=== PATIENT | male | born 1960 | race Caucasian/White ===

== ENCOUNTER 2020-04-23 19:26 | Emergency (ER) | payer BC, OTHER ==
--- OUTSIDE RECORDS SUMMARY | 2020-04-23 19:29 | XMS REPORT | Continuity of Care Document ---
:1960 Author Organization [facility] t Address [address] [place] [address] Care Team Providers Name Role Phone Yesenia Mckenzie Primary Care Physician Stacia Gutierrez MD Attending Clinician YANCI GUTIERREZ Attending Clinician Unavailable YANCI GUTIERREZ Admitting Clinician Unavailable Problems Condition Condition Condition Status Onset Resolution Last Treating Co mments Source Name Details Category Date Date Treatment Clinician Date Malignant Malignant Disease Active 2017-11 [facility] neoplasm neoplasm 11-18 [facility]: [facility] Allergies, Adverse Reactions, Alerts This patient has no known allergies or adverse reactions. Social History Social Habit Start Date Stop Date Quantity Comments Source Sex Assigned At [facility] Smoking Status Start Date Stop Date Source Never smoker [facility] Medications This patient has no known medications. Procedures This patient has no known procedures. Encounters Start End Encounter Admission Attending Care Care Encounter Source Date/Time Date/Time Type Type Clinicians Facility Department ID 2019-09-08 2019-09-08 Office Link, [facility] [id number] 14:12:59 17:39:07 Visit Antolin Dontao AMBULATOR [id number] Y [id number] Results Test Description Test Time Test Comments Results Result Kristin donato Comments TISSUE EXAM 2018-09-30 Surgical Pathology 14:57:00 Report Case: [id number] Authorizing Provider: Antolin Gutierrez MD Collected: 09/18/2018 1106 Ordering Location: [facility] Received: 09/18/2018 1134 SERVICES Pathologist: Zbigniew Brush MD Specimen: Prostate, Prostate with periprostatic fat PROSTATE, ROBOT ASSISTED LAPAROSCOPIC RADICAL PROSTATECTOMY: - ADENOCARCINOMA, MILENA 3+3 = 6, CONFINED TO THE PROSTATE, SURGICAL MARGINS NEGATIVESEMINAL VESICLES, ROBOT ASSISTED LAPAROSCOPIC RADICAL PROSTATECTOMY: - NO PATHOLOGIC DIAGNOSISSOFT TISSUE, "PELVIC LYMPH NODE", DISSECTION: - NO TUMOR PRESENT - NO LYMPH NODE PRESENT Signing Pathologist Direct Phone Line: [phone] ally signed by Zbigniew Brush MD on 09/30/2018 at 2:57 PMPROSTATE GLAND: Radical Prostatectomy (Prostate Res - All Specimens)SPECIMEN Procedure: Radical prostatectomy Prostate Size: Prostate Weight (g): 20.5 g Prostate Greatest Dimension in Centimeters (cm): 3.4 Centimeters (cm) Additional Dimension in Centimeters (cm): 2.8 Centimeters (cm) Additional Dimension in Centimeters (cm): 2.5 Centimeters (cm)TUMOR Histologic Type: Acinar adenocarcinoma Histologic Grade: [place] Pattern: Percentage of Pattern 4: 0 % Percentage of Pattern 5: 0 % Primary [place] Pattern: Pattern 3 Secondary Milena Pattern: Pattern 3 Tertiary [place] Pattern: Not applicable Total Milena Score: 6 Grade Group: 1 Intraductal Carcinoma (IDC): Not identified Tumor Extent: Tumor Quantitation: Estimated percentage of prostate involved by tumor: 5 % Extraprostatic Extension (EPE): Not identified Urinary Bladder Neck Invasion: Not identified Seminal Vesicle Invasion: Not identified Accessory Findings: Treatment Effect: No known presurgical therapy Lymphovascular Invasion: Not Identified Perineural Invasion: Present MARGINS Margins: Uninvolved by invasive carcinoma : Benign prostate glands present at surgical margin LYMPH NODES Regional Lymph Nodes: No lymph nodes submitted or found PATHOLOGIC STAGE CLASSIFICATION (pTNM, AJCC 8th Edition) TNM Descriptors: Not applicable Primary Tumor (pT): pT2 Regional Lymph Nodes (pN): pNX Distant Metastasis (pM): Not applicable - pM cannot be determined from the submitted specimen(s) ADDITIONAL FINDINGS Additional Pathologic Findings: High-grade prostatic intraepithelial neoplasia (PIN) 19079, [id number] ss radical prostatectomy specimen in formalin with the patient's name, Jaja Lee Jr., is a prostate with bilateral seminal vesicles and vas deferentia. The prostate weighs 20.5 gm and measures 2.8 cm apex to base, 3.4 cm transversely and 2.5 cm anterior to posterior. The right and left seminal vesicles measure 3.0 x 1.5 x 0.5 cm and 2.0 x 1.5 x 0.5 cm respectively. The right and left vas deferentia measure 5.0 cm and 4.2 cm in length respectively and 0.5 cm in diameter. The capsular surface of the prostate is purple-bowles to red, dusky and focally ragged. Ink code: right black, left blue. The prostate is serially sectioned from apex to base in entirety. The total number of slices including seminal vesicles and vas deferentia are 9. The sectioning of the prostate reveals pink-bowles to collins-white, homogeneous, focally nodular prostatic parenchyma throughout. No discrete masses are identified. The sectioning of the seminal vesicles reveals a pink-bowles unremarkable cut surface. Section code: apical margin are submitted in cassette A1, the bladder neck margins are submitted in cassette A2. The prostate slices are submitted in cassettes A3 to A7. The right and left seminal vesicles at the base of the prostate are submitted in cassette A8, the seminal vesicle tips along with vas deferentia are submitted in cassette A9. Also received is one piece of bowles-yellow fibrofatty tissue labeled as "pelvic lymph node" measuring 2.0 x 1.5 x 0.5 cm and weighing 2.4 gm. It is submitted in cassette A10. [facility]/plPerformed. BASIC METABOLIC PANEL 2018-09-19 08:40:00 Test Item Value Reference Range Interpretation Comme nts SODIUM (BEAKER) (test code 138 meq/L 136-145 = 381) POTASSIUM (BEAKER) (test 4.2 meq/L 3.5-5.1 code = 379) CHLORIDE (BEAKER) (test 107 meq/L 98-107 code = 382) CO2 (BEAKER) (test code = 23 meq/L 22-29 355) BLOOD UREA NITROGEN 10 mg/dL 7-21 (BEAKER) (test code = 354) CREATININE (BEAKER) (test 0.85 mg/dL 0.57-1.25 code = 358) GLUCOSE RANDOM (BEAKER) 120 mg/dL 70-105 H (test code = 652) CALCIUM (BEAKER) (test code 8.9 mg/dL 8.4-10.2 = 697) EGFR (BEAKER) (test code = 92 mL/min/1.73 sq m ESTIMATED GFR IS NOT 1092) ACCURATE CRE ATININE CLEARANCE IN IN EDICTING GLOMERULAR FILT RATION RATE. ESTIMATED GFR IS NOT APPLICABLE FOR DIALYSIS PATIENTS. CBC W/PLT COUNT & AUTO [id number] 05:31:00 Test Item Value Reference Range Interpretation Comments WHITE BLOOD CELL COUNT (BEAKER) 8.8 K/ L 3.5-10.5 (test code = 775) RED BLOOD CELL COUNT (BEAKER) 4.15 M/ L 4.63-6.08 L (test code = 761) HEMOGLOBIN (BEAKER) (test code = 12.8 GM/DL 13.7-17.5 L 410) HEMATOCRIT (BEAKER) (test code = 38.6 % 40.1-51.0 L 411) MEAN CORPUSCULAR VOLUME (BEAKER) 93.0 fL 79.0-92.2 H (test code = 753) MEAN CORPUSCULAR HEMOGLOBIN 30.8 pg 25.7-32.2 (BEAKER) (test code = 751) MEAN CORPUSCULAR HEMOGLOBIN CONC 33.2 GM/DL 32.3-36.5 (BEAKER) (test code = 752) RED CELL DISTRIBUTION WIDTH 12.8 % 11.6-14.4 (BEAKER) (test code = 412) PLATELET COUNT (BEAKER) (test 229 K/CU MM 150-450 code = 756) MEAN PLATELET VOLUME (BEAKER) 10.8 fL 9.4-12.4 (test code = 754) NUCLEATED RED BLOOD CELLS 0 /100 WBC 0-0 (BEAKER) (test code = 413) NEUTROPHILS RELATIVE PERCENT 78 % (BEAKER) (test code = 429) LYMPHOCYTES RELATIVE PERCENT 10 % (BEAKER) (test code = 430) MONOCYTES RELATIVE PERCENT 11 % (BEAKER) (test code = 431) EOSINOPHILS RELATIVE PERCENT 0 % (BEAKER) (test code = 432) BASOPHILS RELATIVE PERCENT 0 % (BEAKER) (test code = 437) NEUTROPHILS ABSOLUTE COUNT 6.87 K/ L 1.78-5.38 H (BEAKER) (test code = 670) LYMPHOCYTES ABSOLUTE COUNT 0.92 K/ L 1.32-3.57 L (BEAKER) (test code = 414) MONOCYTES ABSOLUTE COUNT (BEAKER) 0.97 K/ L 0.30-0.82 H (test code = 415) EOSINOPHILS ABSOLUTE COUNT 0.00 K/ L 0.04-0.54 L (BEAKER) (test code = 416) BASOPHILS ABSOLUTE COUNT (BEAKER) 0.01 K/ L 0.01-0.08 (test code = 417) IMMATURE GRANULOCYTES-RELATIVE 1 % 0-1 PERCENT (BEAKER) (test code = 2801) BASIC METABOLIC [id number] 12:30:00 Test Item Value Reference Range Interpretation Comments SODIUM (BEAKER) 139 meq/L 136-145 (test code = 381) POTASSIUM (BEAKER) 4.3 meq/L 3.5-5.1 (test code = 379) CHLORIDE (BEAKER) 107 meq/L 98-107 (test code = 382) CO2 (BEAKER) (test 24 meq/L 22-29 code = 355) BLOOD UREA NITROGEN 14 mg/dL 7-21 (BEAKER) (test code = 354) CREATININE (BEAKER) 1.03 mg/dL 0.57-1.25 (test code = 358) GLUCOSE RANDOM 142 mg/dL 70-105 H (BEAKER) (test code = 652) CALCIUM (BEAKER) 9.1 mg/dL 8.4-10.2 (test code = 697) EGFR (BEAKER) (test 74 mL/min/1.73 ESTIMA MELISSA GFR IS code = 1092) sq m NOT ACCURATE CREATININE CLEARANCE IN PREDICTING GLOMERULAR FILTRATION RATE . ESTIMATED GFR I S NOT APPLICABLE FOR DIALYSIS PATIEN TS. HEMOGLOBIN AND [id number] 12:20:00 Test Item Value Reference Range Interpretation Comments HEMOGLOBIN (BEAKER) (test code = 14.1 GM/DL 13.7-17.5 410) HEMATOCRIT (BEAKER) (test code = 42.9 % 40.1-51.0 411)
--- OUTSIDE RECORDS SUMMARY | 2020-04-23 19:29 | XMS REPORT | Clinical Summary ---
:1960 Author Organization [facility] Address [address] [place] [address] Care Team Providers Name Role Phone Yesenia Mckenzie Primary Care Provider Allergies No Known Allergies Medications No known medications Active Problems Problem Noted Date Malignant neoplasm of prostate 09/18/2018 Social History Tobacco Use Types Packs/Day Years Used Date Never Smoker Smokeless Tobacco: Never Used Alcohol Use Drinks/Week oz/Week Comments Yes 6 Cans of beer 3.6 Sex Assigned at Date Recorded Not on file Job Start Date Occupation Industry Not on file Not on file Not on file Travel History Travel Start Travel End No recent travel history available. Last Filed Vital Signs Not on file Plan of Treatment Not on file Results Not on fileafter 04/23/2019 Insurance Payer Benefit Plan / Group Subscriber ID Type Phone A ddress [employer] - MGD CARE AET[employer] SELECT US ACCESS xxxxxxxxxx HMO/POS Advance Directives For more information, please contact:[facility] [place], [place] [phone] Code Status Date Activated Date Inactivated Comments Full Code 09/18/2018 3:05 PM This code status was determined by: Patient
--- NOTE | 2020-04-23 20:23 | RAD REPORT ---
EXAM DESCRIPTION: RAD - Wrist Left 2 View - 04/23/2020 8:10 pm CLINICAL HISTORY: PAIN, fall, wrist pain COMPARISON: No comparisons TECHNIQUE: PA and lateral views of the wrist were obtained. . FINDINGS: Oblique fracture is present through the radial styloid with very minimal 1 millimeter dist raction. There additional sagittal oriented fracture planes extending from the articular surface of t he radius to the metaphyseal diaphyseal junction. These fracture lines have no distraction or angulat ion component. No dislocation or periosteal reaction. No angulation deformity. Distal ulna is intact. No carpal bone abnormality seen. Soft tissue swelling is present without forei gn body. IMPRESSION: Comminuted fracture of the left distal radius as detailed.
--- NOTE | 2020-04-23 20:24 | RAD REPORT ---
EXAM DESCRIPTION: RAD - Wrist Right 2 View - 04/23/2020 8:10 pm CLINICAL HISTORY: Fall, wrist pain COMPARISON: None. FINDINGS: PA and lateral views the right wrist were obtained. No fracture is identified.There is no dislocation or periosteal reaction noted. No foreign body or ot her soft tissue abnormality. IMPRESSION: Buckle fracture distal right radius.
--- NOTE | 2020-04-23 20:39 | RAD REPORT ---
EXAM DESCRIPTION: CT - CTHCSPWOC - 04/23/2020 8:22 pm CLINICAL HISTORY: fall, head and neck injury, headache, neck pain COMPARISON: No comparisons TECHNIQUE: Axial 5 mm thick images of the head were obtained. Axial 2 mm thick images of the cervic al spine were obtained with sagittal and coronal reconstruction images generated and reviewed. All CT scans are performed using dose optimization technique as appropriate and may include automated exposure control or mA/KV adjustment according to patient size. FINDINGS: No intracranial hemorrhage, mass, edema or acute intracranial finding. No suspicion for ac augustine infarction. No extra-axial fluid collections. Mastoid air cells and paranasal sinuses are clear. No globe or orbit abnormality seen. No significant atrophy or chronic ischemic change. Ventricles are normal. Cervical body alignment is normal. Slight wedging is seen in the C5 body. This is often encounter de and typically degenerative in origin. No acute fracture line identified. C3-4 disc space is borderlin e for being narrowed. Disc space narrowing is present involving the C4-5 through C7-T1 levels. Change s are most pronounced at C5-6. No acute fractures seen. No acute or pathologic bone process identifia ble. Borderline right foraminal encroachment C3-4 from uncovertebral joint hypertrophy. Mild right fo raminal encroachment at C4-5. Posterior endplate spurring partially encroaches into the central canal at C4-5 facet joint degenerative changes minimal. Central canal detail is inherently limited. No paraspinal mass or hematoma. IMPRESSION: No hemorrhage, edema or acute CT Head finding. Prominent for age cervical spine degenerative change. No acute finding.
[2020-04-23] MEDS ORDERED: KETOROLAC 30 MG/ML INJ ONE (20:40)
[2020-04-23 20:52] LABS: Absolute Lymphocytes (CBC) 1.1 K/uL (0.7-4.9); Basophils % 0.8 % (0-1.3); Hematocrit 40.9 % (39.6-49.0); Lymphocytes % 12.8 % (15.3-44.8); MPV 9.1 fL (7.6-11.3); RBC Red Blood Cell Count 4.62 M/uL (4.33-5.43)
[2020-04-23 21:10] LABS: Potassium 3.3 mmol/L (3.5-5.1)
--- NOTE | 2020-04-23 21:50 | EDPHYS ---
Physician Documentation [facility] Name: Tim Sahu Jr Age: 60 yrs Sex: Male : 1960 Arrival Date: 04/23/2020 Time: 19:30 Bed 15 Private MD: ED Physician Karel Elise HPI: 04/23 21:41 This 60 yrs old Male presents to ER via Ambulatory with complaints of Arm tw4 Injury. 21:41 The patient or guardian complains of decreased range of motion. The complaints affect tw4 the right wrist, left wrist. Context: The problem was sustained at home, resulted from. Treatment prior to arrival includes: no previous treatment. Modifying factors: The symptoms are alleviated by nothing. the symptoms are aggravated by nothing. The patient has not experienced similar symptoms in the past. Historical: - Allergies: 19:47 No Known Allergies; aj1 - Home Meds: 19:47 Cialis oral oral [Active]; aj1 - PMHx: 19:47 prostate cancer- currently in remission; aj1 - Immunization history:: Flu vaccine is not up to date. - Social history:: Smoking status: Patient/guardian denies using tobacco. ROS: 21:41 Constitutional: Negative for fever, chills, and weight loss, Eyes: Negative for injury, tw4 pain, redness, and discharge, Cardiovascular: Negative for chest pain, palpitations, and edema, Respiratory: Negative for shortness of breath, cough, wheezing, and pleuritic chest pain, Abdomen/GI: Negative for abdominal pain, nausea, vomiting, diarrhea, and constipation, Skin: Negative for injury, rash, and discoloration, Neuro: Negative for headache, weakness, numbness, tingling, and seizure. 21:41 MS/extremity: Positive for injury or acute deformity, decreased range of motion. Exam: 21:41 Constitutional: This is a well developed, well nourished patient who is awake, alert, tw4 and in no acute distress. Head/Face: Normocephalic, atraumatic. Chest/axilla: Normal chest wall appearance and motion. Nontender with no deformity. No lesions are appreciated. Cardiovascular: Regular rate and rhythm with a normal S1 and S2. No gallops, murmurs, or rubs. Normal PMI, no JVD. No pulse deficits. Respiratory: Lungs have equal breath sounds bilaterally, clear to auscultation and percussion. No rales, rhonchi or wheezes noted. No increased work of breathing, no retractions or nasal flaring. Abdomen/GI: Soft, non-tender, with normal bowel sounds. No distension or tympany. No guarding or rebound. No evidence of tenderness throughout. Neuro: Awake and alert, GCS 15, oriented to person, place, time, and situation. Cranial nerves II-XII grossly intact. Motor strength 5/5 in all extremities. Sensory grossly intact. Cerebellar exam normal. Normal gait. 21:41 Musculoskeletal/extremity: Extremities: noted in the left wrist: decreased ROM, deformity, swelling, tenderness, noted in the right wrist: swelling, tenderness, ROM: limited active range of motion due to pain, limited passive range of motion due to pain. Vital Signs: 19:44 BP 140 / 74; Pulse 61; Resp 18; Temp 97.7; Pulse Ox 99% on R/A; Weight 86.18 kg (R); aj1 Height 5 ft. 9 in. (175.26 cm) (R); Pain 8/10; 22:07 BP 130 / 60; Pulse 62; Resp 18; Pulse Ox 98% on R/A; aj1 19:44 Body Mass Index 28.06 (86.18 kg, 175.26 cm) aj1 Toya Coma Score: 19:48 Eye Response: spontaneous(4). Verbal Response: oriented(5). Motor Response: obeys ls4 commands(6). Total: 15. Trauma Score (Adult): 19:48 Eye Response: spontaneous(1); Verbal Response: oriented(1); Motor Response: obeys ls4 commands(2); Systolic BP: > 89 mm Hg(4); Respiratory Rate: 10 to 29 per min(4); [place] Score: 15; Trauma Score: 12 MDM: 19:52 Patient medically screened. tw4 21:41 Differential diagnosis: dislocation, open fracture, closed fracture. Data reviewed: tw4 vital signs, nurses notes. Data interpreted: Pulse oximetry: Interpretation: normal. Counseling: I had a detailed discussion with the patient and/or guardian regarding: the historical points, exam findings, and any diagnostic results supporting the discharge/admit diagnosis. Special discussion: I discussed with the patient/guardian in detail that at this point there is no indication for admission to the hospital. It is understood, however, that if the symptoms persist or worsen the patient needs to return immediately for re-evaluation. 04/23 19:53 Order name: Basic Metabolic Panel; Complete Time: 22:08 04/23 22:08 Interpretation: Normal except: GLUC 114; K 3.3; BUN 20; CRE 1.45; GFR 49. 04/23 19:53 Order name: CBC with Diff; Complete Time: 22:08 04/23 22:09 Interpretation: Normal except: LYM% 12.8; BLOSSOM% 79.1. 04/23 19:53 Order name: CT Head C Spine; Complete Time: 22:08 04/23 19:53 Order name: Type And Screen; Complete Time: 22:08 04/23 19:53 Order name: Wrist Right 2 View XRAY; Complete Time: 20:46 04/23 19:53 Order name: Wrist Left (2 View) XRAY; Complete Time: 20:46 04/23 19:53 Order name: Labs collected and sent; Complete Time: 20:36 04/23 19:53 Order name: C-Collar; Complete Time: 20:10 lp1 Administered Medications: 20:49 Drug: TORadol 30 mg Route: IVP; Site: right antecubital; ls4 21:22 Follow up: Response: No adverse reaction; Pain is decreased ls4 Disposition: 04/23/20 21:50 Discharged to Home. Impression: Colles' fracture of left radius, Colles' fracture of right radius, Contusion of unspecified part of neck. - Condition is Stable. - Discharge Instructions: Colles Fracture, Wrist Fracture Treated With Immobilization. - Prescriptions for Ibuprofen 800 mg Oral Tablet - take 1 tablet by ORAL route every 8 hours As needed take with food; 30 tablet. Tylenol- Codeine #3 300-30 mg Oral Tablet - take 2 tablet by ORAL route every 6 hours As needed; 6 tablet. - Medication Reconciliation Form, Thank You Letter, Antibiotic Education, Prescription Opioid Use form. - Follow up: Private Physician; When: Upon discharge from the Emergency Department; Reason: Recheck today's complaints, Continuance of care, Re-evaluation by your physician. - Problem is new. - Symptoms have improved. Signatures: Dispatcher [employer] EDMS Yudi Morris RN RN aj1 Samanta Goins RN RN lp1 Karel Elise MD MD tw4 Lorena Diaz RN RN ls4 Corrections: (The following items were deleted from the chart) 21:51 21:50 04/23/2020 21:50 Discharged to Home. Impression: Colles' fracture of left radius. tw4 Condition is Stable. Forms are Medication Reconciliation Form, Thank You Letter, Antibiotic Education, Prescription Opioid Use. Follow up: Private Physician; When: Upon discharge from the Emergency Department; Reason: Recheck today's complaints, Continuance of care, Re-evaluation by your physician. Problem is new. Symptoms have improved. tw4 22:08 21:51 04/23/2020 21:50 Discharged to Home. Impression: Colles' fracture of left radius; aj1 Colles' fracture of right radius; Contusion of unspecified part of neck. Condition is Stable. Forms are Medication Reconciliation Form, Thank You Letter, Antibiotic Education, Prescription Opioid Use. Follow up: Private Physician; When: Upon discharge from the Emergency Department; Reason: Recheck today's complaints, Continuance of care, Re-evaluation by your physician. Problem is new. Symptoms have improved. tw4
--- NOTE | 2020-04-23 21:50 | ER ---
Nurse's Notes [facility] Name: Tim Sahu Jr Age: 60 yrs Sex: Male : 1960 Arrival Date: 04/23/2020 Time: 19:30 Bed 15 Private MD: Diagnosis: Colles' fracture of left radius;Colles' fracture of right radius;Contusion of unspecified part of neck Presentation: 04/23 19:44 Chief complaint: Patient states: I was up on a ladder and he fell backwards off the aj1 ladder, states that he landed on his arms, then back and head. Reports pain to left wrist, right wrist, and neck. Denies LOC, denies vomiting. Coronavirus screen: Proceed with normal triage. Patient denies a cough. Patient denies shortness of breath or difficulty breathing. Patient denies measured and/or subjective temperature greater than 100.4F prior to today's visit. Patient denies travel on a cruise ship or to a country the [facility] currently lists as an affected area. Patient denies contact with known and/or suspected case of COVID-19. Ebola Screen: Patient denies travel to an Ebola-affected area in the 21 days before illness onset. Initial Sepsis Screen: Does the patient meet any 2 criteria? No. Patient's initial sepsis screen is negative. Does the patient have a suspected source of infection? No. Patient's initial sepsis screen is negative. Risk Assessment: Do you want to hurt yourself or someone else? Patient reports no desire to harm self or others. Onset of symptoms was April 23, 2020 at 18:45. 19:44 Method Of Arrival: Ambulatory aj1 19:44 Acuity: OSMAN 4 aj1 20:17 Care prior to arrival: None. Mechanism of Injury: Fall from ladder approximately 7 ls4 feet. Trauma event details: Injury occurred in the [facility], Injury occurred: at home. Injury occurred: April 23, 2020 Injury occurred at: 17:00. Activity prior to arrival: None. Triage Assessment: 19:47 General: Appears in no apparent distress. uncomfortable, Behavior is calm, cooperative, aj1 appropriate for age. Pain: Complains of pain in right wrist, left wrist and neck. Neuro: Level of Consciousness is awake, alert, obeys commands. Musculoskeletal: Range of motion: limited in left wrist and right wrist. Injury Description: Patient reports he fell 7 feet off a ladder. Trauma Activation: Alert Physician: ED Physician; Name: ISAI; Notified At: 17:49; Arrived At: 17:50 Physician: General Surgeon; Name: NA; Notified At: 17:49; Arrived At: Specialty not needed Physician: Radiology; Name: JEANNETTE; Notified At: 17:49; Arrived At: 17:50 Physician: Respiratory; Name: NA; Notified At: 17:49; Arrived At: Specialty not needed Physician: Lab; Name: NA; Notified At: 17:49; Arrived At: Specialty not needed Historical: - Allergies: 19:47 No Known Allergies; aj1 - Home Meds: 19:47 Cialis oral oral [Active]; aj1 - PMHx: 19:47 prostate cancer- currently in remission; aj1 - Immunization history:: Flu vaccine is not up to date. - Social history:: Smoking status: Patient/guardian denies using tobacco. Screenin:16 Abuse screen: Denies threats or abuse. Denies injuries from another. Tuberculosis ls4 screening: No symptoms or risk factors identified. 20:21 Nutritional screening: No deficits noted. Fall Risk None identified. ls4 Primary Survey: 19:48 NO uncontrolled hemorrhage observed. A: The patient is alert. Airway: patent, Patient ls4 intubated prior to arrival No supplemental oxygen in use on arrival. Oral cavity: clear, Trachea midline. Breathing/Chest: Respiratory pattern: regular, Respiratory effort: spontaneous, unlabored, Breath sounds: clear, bilaterally. Chest inspection: symmetrical rise and fall of the chest. Circulation: Heart tones present. Pulses: palpable right radial artery, right posterior tibial artery, left radial artery and left posterior tibial artery. Skin color: pink, Skin temperature: warm, dry, Arterial Line:. Disability Alert. Exposure/Environment: All clothing and personal items were removed. Forensic evidence collection is not deemed to be indicated at this time. Items placed in patient belonging bag. A warming method has been applied: A warm blanket has been provided to the patient. Reassessment Breathing/Chest Respiratory pattern Regular Respiratory effort Spontaneous Unlabored Breath sounds Clear Chest inspection Symmetrical Circulation Heart rhythm Heart tones Present Pulses Palpable Color [place] Temperature Warm Dry Disability Alert. Secondary Survey: 19:48 HEENT: No deficits noted. Gastrointestinal: No deficits noted. : No deficits noted. ls4 Musculoskeletal: Circulation, motion, and sensation intact. Capillary refill < 3 seconds, Range of motion: limited in left wrist Swelling present in left wrist Denies numbness in, right hand, left hand, right foot, left foot, right arm, left arm, right leg and left leg. Injury Description: NO VISIBLE INJURY. Assessment: 20:11 General: Appears in no apparent distress. comfortable. General: Behavior is calm, ls4 cooperative. Pain: Complains of pain in left wrist Pain currently is 8 out of 10 on a pain scale. Neuro: Level of Consciousness is awake, alert, obeys commands, Oriented to person, place, time, situation. EENT: No deficits noted. No signs and/or symptoms were reported regarding the EENT system. Eyes Sclera/Cornea are clear in outer aspect of conjuctiva of right eye, inner aspect of conjuctiva of right eye, outer aspect of conjuctiva of left eye and inner aspect of conjunctiva of left eye Throat is clear Denies. Cardiovascular: Denies chest pain, diaphoresis, fatigue, lightheadedness, nausea, palpitations, shortness of breath, syncope, vomiting, Capillary refill < 3 seconds Patient's skin is warm and dry. Respiratory: Airway is patent Respiratory effort is even, unlabored, Respiratory pattern is regular. GI: Abdomen is non-distended, Bowel sounds present X 4 quads. Abd is soft and non tender X 4 quads. Reports. : No deficits noted. No signs and/or symptoms were reported regarding the genitourinary system. Derm: No deficits noted. No signs and/or symptoms reported regarding the dermatologic system. Musculoskeletal: Reports pain in neck Pain is 3 out of 10 on a pain scale. Injury Description: NO VISIBLE INJURY. Vital Signs: 19:44 BP 140 / 74; Pulse 61; Resp 18; Temp 97.7; Pulse Ox 99% on R/A; Weight 86.18 kg (R); aj1 Height 5 ft. 9 in. (175.26 cm) (R); Pain 8/10; 22:07 BP 130 / 60; Pulse 62; Resp 18; Pulse Ox 98% on R/A; aj1 19:44 Body Mass Index 28.06 (86.18 kg, 175.26 cm) aj1 [place] Coma Score: 19:48 Eye Response: spontaneous(4). Verbal Response: oriented(5). Motor Response: obeys ls4 commands(6). Total: 15. Trauma Score (Adult): 19:48 Eye Response: spontaneous(1); Verbal Response: oriented(1); Motor Response: obeys ls4 commands(2); Systolic BP: > 89 mm Hg(4); Respiratory Rate: 10 to 29 per min(4); [place] Score: 15; Trauma Score: 12 ED Course: 19:30 Patient arrived in ED. es 19:46 Triage completed. aj1 19:47 Arm band placed on Patient placed in an exam room. aj1 19:48 No provider procedures requiring assistance completed. Rigid cervical collar applied ls4 and checked by physician. 19:48 Patient maintains SpO2 saturation greater than 95% on room air. ls4 19:52 Karel Elise MD is Attending Physician. tw4 19:53 Lorena Diaz, RN is Primary Nurse. ls4 20:10 Wrist Right 2 View XRAY In Process Unspecified. EDMS 20:10 Wrist Left (2 View) XRAY In Process Unspecified. EDMS 20:16 Patient has correct armband on for positive identification. Bed in low position. Call ls4 light in reach. Side rails up X 1. Adult w/ patient. Patient maintains SpO2 saturation greater than 95% on room air. 20:21 Thermoregulation: PT REFUSED WARM BLANKET. ls4 20:23 CT Head C Spine In Process Unspecified. EDMS 20:44 Inserted saline lock: 20 gauge in right antecubital area, using aseptic technique. dh4 22:07 IV discontinued, intact, bleeding controlled, No redness/swelling at site. Pressure aj1 dressing applied. Administered Medications: 20:49 Drug: TORadol 30 mg Route: IVP; Site: right antecubital; ls4 21:22 Follow up: Response: No adverse reaction; Pain is decreased ls4 Outcome: 21:50 Discharge ordered by . tw4 22:07 Discharged to home ambulatory, with family. aj1 22:07 Condition: good 22:07 Discharge instructions given to patient, family, Instructed on discharge instructions, follow up and referral plans. no drinking with medication, no driving heavy equipment, medication usage, Splint care, circulation checks, R.I.C.E Demonstrated understanding of instructions, follow-up care, medications, splint care, R.I.C.E, circulation checks Prescriptions given X 2. 22:08 Patient left the ED. aj1 Signatures: Dispatcher [employer] Yudi Hernandez RN RN aj1 Melissa Humphrey Terrence, MD MD tw4 Lorena Diaz RN RN ls4 Jakub Givens 4
[2020-04-23 22:15] VITALS: TEMP 97.7
[2020-04-23 22:16] VITALS: BP 130/60; O2SAT 98
== END 2020-04-23 22:08 | disposition home or self-care (01) ==
LOC: ER 19:26
DX: S52.532A Colles' fracture of left radius, initial encounter for closed fracture (principal); S52.531A Colles' fracture of right radius, initial encounter for closed fracture; W11.XXXA Fall on and from ladder, initial encounter; Y93.9 Activity, unspecified; Y92.009 Unspecified place in unspecified non-institutional (private) residence as the place of occurrence of the external cause; Z85.46 Personal history of malignant neoplasm of prostate
CPT/HCPCS: 36415; 70450; 72125; 80048; 85025; 86850; 86900; 86901; 96374; 99284

== ENCOUNTER 2021-08-19 15:16 | Emergency (ER) | payer BC ==
[2021-08-19] MEDS ORDERED: HYDROCODONE/APAP 7.5/325 MG TAB ONE (16:12)
[2021-08-19] MEDS ORDERED: TETANUS & DIPHTHERIA TOX,ADULT 0.5 ML VIAL ONE (16:12)
--- NOTE | 2021-08-19 17:02 | RAD REPORT ---
EXAM DESCRIPTION: RAD - Tib Fib Left - 08/19/2021 4:18 pm CLINICAL HISTORY: Laceration, chainsaw injury COMPARISON: None. FINDINGS: No fracture is identified. There is very subtle irregularity of the outer cortex at the le mable of the laceration. No foreign body in the soft tissues. There is no dislocation or periosteal bisi ction noted. IMPRESSION: Suspected very small cortical defect superficial most aspect of the midshaft left tibia.
[2021-08-19] MEDS ORDERED: BUPIVACAINE 0.5% PF 10 ML VIAL ONE (17:35)
[2021-08-19] MEDS ORDERED: LIDOCAINE 1% W/EPI 1:100,000 MDV 20 ML VIAL ONE (17:36)
[2021-08-19] MEDS ORDERED: CEFAZOLIN SODIUM 1 GM/VIAL ONE (18:27)
[2021-08-19] MEDS ORDERED: WATER FOR INJ,STERILE 10 ML ONE (18:28)
--- NOTE | 2021-08-19 18:28 | EDPHYS ---
Physician Documentation [facility] Name: Tim Sahu Jr Age: 61 yrs Sex: Male : 1960 Arrival Date: 08/19/2021 Time: 15:17 Bed 8 Private MD: ED Physician Bassem Ceron HPI: 08/19 15:45 This 61 yrs old Male presents to ER via Wheelchair with complaints of cp Laceration To Leg. 15:45 The patient has a laceration occurred outdoors, and while using chainsaw The injury was cp accidental. The laceration(s) is(are) located on the left stewart. Onset: The symptoms/episode began/occurred just prior to arrival. Associated signs and symptoms: Pertinent negatives: heavy bleeding, loss of consciousness, numbness distal to injury. Patient reports he was using chainsaw when he accidently struck left lower leg causing laceration. Historical: - Allergies: 15:33 No Known Allergies; vg1 - Home Meds: 15:33 None [Active]; vg1 - PMHx: 15:33 prostate cancer- currently in remission; vg1 - Immunization history:: Adult Immunizations up to date, Client reports receiving the 2nd dose of the Covid vaccine. - Social history:: Smoking status: Patient denies any tobacco usage or history of. ROS: 15:50 Skin: Positive for laceration(s), of the anterior aspect left lower leg. cp 15:50 Constitutional: Negative for fever. cp 15:50 Neck: Negative for pain with movement, pain at rest, stiffness. 15:50 Cardiovascular: Negative for chest pain, palpitations. 15:50 Respiratory: Negative for cough, shortness of breath, wheezing. 15:50 Back: Negative for pain at rest, pain with movement. 15:50 Neuro: Negative for numbness, tingling, weakness. 15:50 All other systems are negative. Exam: 15:55 Constitutional: The patient appears in no acute distress, alert, awake, well developed, cp well nourished. 15:55 Head/Face: Normocephalic, atraumatic. cp 15:55 Cardiovascular: Rate: normal. 15:55 Respiratory: the patient does not display signs of respiratory distress, Respirations: normal, no use of accessory muscles, no retractions, labored breathing, is not present. 15:55 Abdomen/GI: Exam negative for discomfort, distension, guarding, Inspection: abdomen appears normal. 15:55 Back: pain, is absent, ROM is normal. 15:55 Musculoskeletal/extremity: Extremities: grossly normal except: noted in the left stewart: laceration, ROM: full active range of motion, in the left ankle, Perfusion: the extremity is normally perfused throughout, Sensation intact. 15:55 Skin: injury, laceration(s), the wound is approximately 7 cm(s), of the left stewart, that can be described as no foreign body, linear, with mild bleeding. Vital Signs: 15:32 BP 142 / 89; Pulse 68; Resp 18; Temp 98.4; Pulse Ox 100% ; Weight 90.72 kg; Height 5 vg1 ft. 9 in. (175.26 cm); Pain 4/10; 15:32 Body Mass Index 29.53 (90.72 kg, 175.26 cm) vg1 Laceration: 18:30 Wound Repair of 7cm ( 2.8in ) subcutaneous laceration to anterior aspect left lower cp leg. Linear shaped.. Distal neuro/vascular/tendon intact. Anesthesia: Wound infiltrated with 10 mls of Lido/Marcaine. Wound prep: Moderate cleansing by nurse, Wound irrigation by nurse. Skin closed with 9 1-0 Akash using staple gun. Dressed with Bacitracin, 4x4's, Kerlix. Patient tolerated well. MDM: 15:41 Patient medically screened. cp 16:00 Differential diagnosis: superficial laceration, tendon injury, open fracture. cp 17:19 Data reviewed: vital signs, nurses notes, radiologic studies, plain films. Physician cp consultation: Darrick Gloria MD was contacted at 17:19, regarding wound management. Discussed results of x-ray findings that showed concern for irregularity of the outer cortex at the level of the laceration. Requests wound cleaned, irrigated in the ER and closed. 17:28 Physician consultation: Hayden Gant MD was called at 17:30, regarding consult, cp patient's condition. 18:28 Counseling: I had a detailed discussion with the patient and/or guardian regarding: the cp historical points, exam findings, and any diagnostic results supporting the discharge/admit diagnosis, radiology results, the need for outpatient follow up, a family practitioner, a orthopedic surgeon, to return to the emergency department if symptoms worsen or persist or if there are any questions or concerns that arise at home. 18:28 Response to treatment: the patient's symptoms have markedly improved after treatment. cp Special discussion: I discussed in detail with the patient the higher chance of wound infection based on his presenting history. 08/19 15:42 Order name: XRAY Tib Fib LEFT cp 08/19 16:53 Order name: Dressing - Wound; Complete Time: 18:36 cp 08/19 16:53 Order name: Gloves, Sterile; Complete Time: 17:09 cp 08/19 16:53 Order name: Setup Suture Tray; Complete Time: 17:09 cp 08/19 18:27 Order name: Wound dressing; Complete Time: 18:36 cp 08/19 18:27 Order name: Crutches; Complete Time: 18:36 cp Administered Medications: 15:53 Drug: Tetanus-Diphtheria Toxoid Adult 0.5 ml {Driller'S Offsider: [employer]. Exp: ch5 01/25/2023. Lot #: [id number]. } Route: IM; Site: right deltoid; 18:36 Follow up: Response: No adverse reaction tw2 15:53 Drug: Hydrocodone-Acetaminophen (7.5 mg-325 mg) 1 tabs Route: PO; ch5 18:36 Follow up: Response: No adverse reaction; Pain is decreased; RASS: Alert and Calm (0) tw2 17:00 Drug: Lidocaine-Epinephrine -1%: (1:100,000) 10 ml {Note: Administered by Ash PA.} ch5 Volume: 20 ml; Route: Infiltration; 17:00 Drug: Marcaine (bupivacaine) (0.5 %) 10 ml {Note: administered by Ash PA.} Volume: 10 ch5 ml; Route: Infiltration; 18:27 Drug: Ancef (cefazolin) 1 grams Route: IM; Site: right ventrogluteal; ch5 18:36 Follow up: Response: No adverse reaction tw2 Disposition: 18:45 Chart complete. cp Disposition Summary: 08/19/21 18:28 Discharge Ordered Location: Home cp Problem: new cp Symptoms: have improved cp Condition: Stable cp Diagnosis - Laceration without foreign body of lower leg - left cp Followup: cp - With: Hayden Gant MD - When: 48 Hours - Reason: Wound Recheck Discharge Instructions: - Discharge Summary Sheet cp - Laceration Care, Adult cp Forms: - Medication Reconciliation Form cp - Thank You Letter cp - Antibiotic Education cp - Prescription Opioid Use cp Prescriptions: - Clindamycin HCl 300 mg Oral Capsule - take 1 capsule by ORAL route every 6 hours for 10 days; 40 capsule; Refills: 0, cp Product Selection Permitted - Naprosyn 500 mg Oral Tablet - take 1 tablet by ORAL route 2 times per day take with food; 20 tablet; Refills: cp 0, Product Selection Permitted Addendum: 08/23/2021 00:04 Co-signature as Attending Physician, Bassem Ceron MD I agree with the assessment and r n plan of care. Attestation: The patient's history, exam findings, diagnostics, and a summary of any interventions or procedures was reviewed in detail with Ash NAPIER. Signatures: Dispatcher [employer] EDBassem Mcqueen MD MD rn Page, Corey, PA PA cp Garcia, Victoria RN RN vg1 Bam Rosado RN RN ch5 Emily Alonso RN tw2 Corrections: (The following items were deleted from the chart) 08/19 15:34 15:33 Home Meds: Cialis Oral; vg1 vg1
--- NOTE | 2021-08-19 18:28 | ER ---
Nurse's Notes [facility] Name: Tim Sahu Jr Age: 61 yrs Sex: Male : 1960 Arrival Date: 08/19/2021 Time: 15:17 Bed 8 Private MD: Diagnosis: Laceration without foreign body of lower leg-left Presentation: 08/19 15:32 Chief complaint: Patient states: " I was cutting down some tree limbs and cut my Left vg1 stewart with a chain saw". Coronavirus screen: Vaccine status: Patient reports receiving the 2nd dose of the covid vaccine. Ebola Screen: Patient negative for fever greater than or equal to 101.5 degrees Fahrenheit, and additional compatible Ebola Virus Disease symptoms. Complicating Factors:. Initial Sepsis Screen: Does the patient meet any 2 criteria? No. Patient's initial sepsis screen is negative. Does the patient have a suspected source of infection? No. Patient's initial sepsis screen is negative. Risk Assessment: Do you want to hurt yourself or someone else? Patient reports no desire to harm self or others. Onset of symptoms was August 19, 2021. 15:32 Method Of Arrival: Wheelchair vg1 15:32 Acuity: OSMAN 4 vg1 Triage Assessment: 15:33 General: Appears in no apparent distress. uncomfortable, Behavior is calm, cooperative. vg1 Pain: Complains of pain in left stewart. Injury Description: Laceration sustained to left stewart is bleeding moderately, was sustained 30-60 minutes ago. Historical: - Allergies: 15:33 No Known Allergies; vg1 - Home Meds: 15:33 None [Active]; vg1 - PMHx: 15:33 prostate cancer- currently in remission; vg1 - Immunization history:: Adult Immunizations up to date, Client reports receiving the 2nd dose of the Covid vaccine. - Social history:: Smoking status: Patient denies any tobacco usage or history of. Screenin:50 Abuse screen: Denies threats or abuse. Nutritional screening: No deficits noted. tw2 Nutritional screening: No deficits noted. Tuberculosis screening: No symptoms or risk factors identified. Fall Risk None identified. Assessment: 18:50 Reassessment: Patient appears in no apparent distress at this time. No changes from tw2 previously documented assessment. 18:50 Musculoskeletal: Circulation, motion, and sensation intact. tw2 Vital Signs: 15:32 BP 142 / 89; Pulse 68; Resp 18; Temp 98.4; Pulse Ox 100% ; Weight 90.72 kg; Height 5 vg1 ft. 9 in. (175.26 cm); Pain 4/10; 15:32 Body Mass Index 29.53 (90.72 kg, 175.26 cm) vg1 ED Course: 15:17 Patient arrived in ED. mr 15:33 Triage completed. vg1 15:33 Arm band placed on. vg1 15:35 Bed in low position. Call light in reach. Pulse ox on. NIBP on. tw2 15:36 Ash Guzman PA is PHCP. cp 15:36 Bassem Ceron MD is Attending Physician. cp 15:44 Bam Rosado, LORRI is Primary Nurse. ch5 16:18 XRAY Tib Fib LEFT In Process Unspecified. EDMS 18:27 Hayden Gant MD is Referral Physician. cp 18:50 No provider procedures requiring assistance completed. Patient did not have IV access tw2 during this emergency room visit. Administered Medications: 15:53 Drug: Tetanus-Diphtheria Toxoid Adult 0.5 ml {Explosive Ordnance Disposal Specialist: [employer]. Exp: ch5 01/25/2023. Lot #: [id number]. } Route: IM; Site: right deltoid; 18:36 Follow up: Response: No adverse reaction tw2 15:53 Drug: Hydrocodone-Acetaminophen (7.5 mg-325 mg) 1 tabs Route: PO; ch5 18:36 Follow up: Response: No adverse reaction; Pain is decreased; RASS: Alert and Calm (0) tw2 17:00 Drug: Lidocaine-Epinephrine -1%: (1:100,000) 10 ml {Note: Administered by Ash NAPIER.} ch5 Volume: 20 ml; Route: Infiltration; 17:00 Drug: Marcaine (bupivacaine) (0.5 %) 10 ml {Note: administered by Ash NAPIER.} Volume: 10 ch5 ml; Route: Infiltration; 18:27 Drug: Ancef (cefazolin) 1 grams Route: IM; Site: right ventrogluteal; ch5 18:36 Follow up: Response: No adverse reaction tw2 Outcome: 18:28 Discharge ordered by . cp 18:50 Discharged to home via wheelchair. tw2 18:50 Condition: stable 18:50 Discharge instructions given to patient, significant other, Instructed on discharge instructions, follow up and referral plans. medication usage, safety practices, crutch walking, wound care, Demonstrated understanding of instructions, follow-up care, medications, wound care, crutch walking, Prescriptions given X 2. 18:58 Patient left the ED. tw2 Signatures: Dispatcher [employer] EDID Laila Serrato mr Ash Guzman PA PA cp Wise, Tara RN RN tw2 Arianne Dunne RN RN vg1 Bam Rosado RN RN ch5 Corrections: (The following items were deleted from the chart) 15:34 15:33 Home Meds: Cialis Oral; vg1 vg1
[2021-08-19 19:02] VITALS: BP 142/89; TEMP 98.4; O2SAT 100
== END 2021-08-19 18:58 | disposition home or self-care (01) ==
LOC: ER 15:16
PROC: 0HQLXZZ Repair Left Lower Leg Skin, External Approach (ICD-10-PCS; principal; 2021-08-19)
DX: S81.812A Laceration without foreign body, left lower leg, initial encounter (principal); W29.3XXA Contact with powered garden and outdoor hand tools and machinery, initial encounter; Z23 Encounter for immunization; Z85.46 Personal history of malignant neoplasm of prostate
CPT/HCPCS: 73590; 90471; 90714; 96372; 99284; 12002; J0690